=== PATIENT | female | born 1935 | race Two or more races ===

== ENCOUNTER 2016-08-22 07:06 | Day surgery (SDC) | payer MEDICARE, OTHER ==
[~2016-08-22] VITALS: Ht 154.9 cm; Wt 90.0 kg
[2016-08-22] VITALS (10 sets, daily range): BP systolic 106–149; BP diastolic 42–67; PULSE 58–80; RESP 13–28; Ht 154.9 cm; Wt 90.0 kg
[2016-08-22] MEDS ORDERED: POLYMYXIN/BACITRACIN 1L IRRIG IRR ONE (08:00)
[2016-08-22] MEDS ORDERED: MIDAZOLAM 1 MG/ML 2 ML INJ ONE ×3 (08:20→08:21)
[2016-08-22] MEDS ORDERED: CEFAZOLIN 1 GM/50 ML (PMX) 50 ML IVPB ONE ×2 (08:20→11:00)
[2016-08-22] MEDS ORDERED: LIDOCAINE 1% (MDV) 20 ML INJ ONE (08:20)
[2016-08-22] MEDS ORDERED: FENTAnyl 50 MCG/ML VIAL ONE ×2 (08:21)
[2016-08-22] MEDS ORDERED: WARF6TAB PO (08:28)
[2016-08-22] MEDS ORDERED: BUPR75TA9 PO (08:28)
[2016-08-22] MEDS ORDERED: SIMV40TA2 PO (08:28)
[2016-08-22] MEDS ORDERED: FAMO20TA18 PO (08:28)
[2016-08-22] MEDS ORDERED: METO-448 PO (08:28)
[2016-08-22 08:35] LABS: INR 1.12; PARTIAL THROMBOPLASTIN TIME 25.7 Sec (25.0-35.0); PROTIME 14.4 Sec (12.2-14.2); PT RATIO 1.1
[2016-08-22] MEDS ORDERED: MIDAZOLAM 1 MG/ML 2 ML INJ IV SCH (11:00)
[2016-08-22] MEDS ORDERED: FENTAnyl 50 MCG/ML VIAL IV ONE (11:00)
--- NOTE | 2016-08-22 11:05 | SP ---
DATE OF PROCEDURE: 08/22/2016 PROCEDURE: Replacement of ICD. SURGEON: Zay Cohen MD DESCRIPTION OF PROCEDURE: After obtaining informed consent, the patient was brought to the catheteri zation laboratory and prepped and draped in usual fashion. 1% lidocaine was applied directly above the previous generator. Direct access was obtained. 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 The o ld RV leads were exposed and the old RV pacing lead was used for pacing. The device was explanted. The new device is a Medtronic ICD [id number], serial #: [id number]. This was attached to the previous leads in the right atrium, model #: 6940-52, serial #: [id number]. Initial implant 04/26/1999. The right ventricular lead is model #482734, serial number #[id number] [employer] implanted 03/13/2011 sleeve that goes to the RP apex. Measured data are as follows: Right atrium P-wave 1.9 millivolts, pacing 342 ohms impedance, thresh old 0.5 volts, 0.6 milliseconds. In the right ventricle the patient is pacer dependent. Impedance i s 570 ohms. High voltage 56 impedance. The threshold is 0.5 volts, at 0.4 msec. The wound was closed in 2 layers after the pulse generator was put in the pocket and the previously exposed RV lead was recapped and left closer to the surface and above the ____ for easier access for the next implant. Wound was covered with Dermabond. MEDICATIONS: Versed 1 mg x3, fentanyl 25 mcg x3. The patient was awake and alert throughout the pr ocedure and pain free. There were no complications. Dictated By: ZAY COHEN MD, JR/NTS Conf#: [id number] DID#: [id number]
== END 2016-08-22 11:55 | disposition home or self-care (01) ==
LOC: SDS 07:06
PROVIDERS: ATTEND Internal Medicine Interventional Cardiology
DX: Z45.02 Encounter for adjustment and management of automatic implantable cardiac defibrillator (principal)
CPT/HCPCS: 33263; 82962; 85610; 85730; C1721; J0690; J2250; J3010; 33264